=== PATIENT | female | born 1980 | race Caucasian/White ===

== ENCOUNTER 2021-03-23 07:53 | Emergency (ER) | payer OTHER | END 2021-03-23 08:42 | disposition home or self-care (01) | LOC: ERS 07:53 | DX: H66.91 Otitis media, unspecified, right ear (principal) | CPT/HCPCS: 99283 ==

== ENCOUNTER 2021-05-23 14:28 | Emergency (ER) | payer OTHER | END 2021-05-23 16:22 | disposition home or self-care (01) | LOC: ERS 14:28 | DX: J32.9 Chronic sinusitis, unspecified (principal); J02.9 Acute pharyngitis, unspecified | CPT/HCPCS: 87081; 87430; 99283 ==

== ENCOUNTER 2021-08-06 19:43 | Emergency (ER) | payer OTHER | END 2021-08-06 20:29 | disposition home or self-care (01) | LOC: ERS 19:43 | DX: H60.92 Unspecified otitis externa, left ear (principal) | CPT/HCPCS: 99282 ==

== ENCOUNTER 2021-08-09 08:54 | Emergency (ER) | payer OTHER ==
[2021-08-09] MEDS ORDERED: Acetaminophen 500 MG TAB ONE ×2 (09:20→09:22)
== END 2021-08-09 09:23 | disposition home or self-care (01) ==
LOC: ERS 08:54
DX: J01.10 Acute frontal sinusitis, unspecified (principal); B96.89 Other specified bacterial agents as the cause of diseases classified elsewhere; J06.9 Acute upper respiratory infection, unspecified
CPT/HCPCS: 99283

== ENCOUNTER 2021-08-28 06:11 | Emergency (ER) | payer OTHER | END 2021-08-28 06:52 | disposition home or self-care (01) | LOC: ERS 06:11 | DX: H65.91 Unspecified nonsuppurative otitis media, right ear (principal) | CPT/HCPCS: 99282 ==

== ENCOUNTER 2021-11-07 18:55 | Emergency (ER) | payer OTHER ==
[~2021-11-07 18:55] MED LIST: Iopamidol-370 76% 500 ML 1 ML ONE
[2021-11-07 19:31] LABS: Bacteria/HPF None Seen HPF (None Seen); Bilirubin Negative (Negative); Blood, Urine Negative (Negative); Clarity Clear (Clear); Glucose, Urine (Dipstick) Normal (Negative); Ketone, Urine Negative (Negative); Leukocyte Negative Leu/uL (Negative); Nitrite Negative (Negative); Protein, Urine (Dipstick) 30 mg/dL (Neg-Trace); RBC/HPF 0-3 HPF (0-3); Specific Gravity, Urine 1.027 (1.002-1.036); Squamous Epithelial 0-3 HPF (0-3); Urobilinogen Normal mg/dL (Less than 2); WBC/HPF 0-3 HPF (0-3); pH, Urine 5.5 (5.0-9.0)
[2021-11-07 19:33] LABS: #Basophils 0.1 thou/uL (0.0-0.2); #Eosinphils 0.4 thou/uL (0.0-0.7); #Lymphocytes 3.4 thou/uL (1.20-3.40); #Monocytes 0.7 thou/uL (0.11-0.59); #Neutrophils 9.2 thou/uL (1.40-6.50); %Basophils 0.5 % (0.0-1.0); %Eosinophils 2.8 % (0.0-10.0); %Lymphocytes 24.7 % (21.0-51.0); %Monocytes 4.8 % (0.0-10.0); %Neutrophils 67.2 % (42.0-75.0); Hemoglobin 14.6 g/dL (12.0-16.0); Mean Corpuscular HGB CONC 34.8 g/dL (32.0-36.0); Mean Corpuscular Hemoglobin 30.7 pg (27.0-31.0); Mean Corpuscular Volume 88.2 fL (78.0-98.0); Mean Platelet Volume 6.6 fL (7.4-10.4); Platelet Count 407 thou/uL (130-400); Pregnancy Test - Urine (BHCG) Negative (Negative); Pregu Control Background? CLEAR/WHITE (CLR/WHITE); Pregu Control Bar Appear? YES (CONTROL BAR); RBC Distribution Width 12.1 % (11.5-14.5); Red Blood Cell (RBC) Count 4.75 mill/uL (4.20-5.40); Specific Gravity 1.027 (1.002-1.036); White Blood Cell (WBC) Count 13.7 thou/uL (4.8-10.8)
[2021-11-07 19:53] LABS: ALT (SGPT) 21 U/L (8-55); AST (SGOT) 20 U/L (5-34); Albumin 4.5 g/dL (3.5-5.0); Alkaline Phosphatase 68 U/L (40-110); Anion Gap 14 mmol/L (10-20); BUN (Urea Nitrogen) 10 mg/dL (7.0-18.7); Bilirubin, Total 0.4 mg/dL (0.2-1.2); Calc. Creatinine Clearance 0 mL/min (70-130); Calcium 8.9 mg/dL (7.8-10.44); Carbon Dioxide 25 mmol/L (22-29); Chloride 104 mmol/L (98-107); Estimated GFR 113; Globulin 3.6 g/dL (2.4-3.5); Glucose 101 mg/dL (70-105); Potassium 3.3 mmol/L (3.5-5.1); Protein, Total 8.1 g/dL (6.0-8.3); Sodium 140 mmol/L (136-145)
[2021-11-07] MEDS ORDERED: Acetaminophen 325 MG TAB ONE (21:30)
[2021-11-07] MEDS ORDERED: Acetaminophen 500 MG TAB ONE (21:30)
== END 2021-11-07 22:44 | disposition home or self-care (01) ==
LOC: ERS 18:55
DX: R10.30 Lower abdominal pain, unspecified (principal); R30.0 Dysuria
CPT/HCPCS: 74177; 80053; 81003; 81015; 81025; 83605; 85025; 87086; Q9967